=== PATIENT | male | born 1960 | race Caucasian/White ===

== ENCOUNTER 2017-03-22 17:41 | Observation (INO) | payer BC ==
[2017-03-22] MEDS ORDERED: SODIUM CHLORIDE 0.9% 1,000 ML IV STA (18:20)
[2017-03-22] MEDS ORDERED: ASPIRIN 81 MG PO STA (18:20)
[2017-03-22] MEDS ORDERED: NITROGLYCERIN OINT 1 INCH/GM PACKET TOPICAL STA (18:21)
--- NOTE | 2017-03-22 18:24 | ED ---
General Adult HPI - General Chief complaint: Chest Pain Stated complaint: Chest pain Time Seen by Provider: 03/22/17 18:05 Source: patient, RN notes reviewed Mode of arrival: wheelchair Limitations: no limitations - History of Present Illness Initial comments: Patient is a pleasant 57-year-old male presenting to the emergency Department with palpitations and chest discomfort. Onset was prior to arrival. Symptoms are near resolved. Patient has no palpitations at this time. Patient felt his heart was racing. Patient checked his heart rate at home at 118. Patient's blood pressure was up somewhat. Patient did have some pressure in his chest that was mild. Chest pressure is near resolved at this time. Patient questionable whether or not he has some shortness of breath. No nausea or diaphoresis. Patient has had 3 episodes similar to this since January. Patient has yet to see his doctor. In January his heart rate did get up to 164 at one time. - Related Data Home Medications Medication Instructions Recorded Confirmed Aspirin 325 mg PO ONCE 03/22/17 03/22/17 Atorvastatin [Lipitor] 20 mg PO HS 03/22/17 03/22/17 Lansoprazole [Prevacid] 30 mg PO DAILY 03/22/17 03/22/17 Latanoprost [Xalatan 0.005%] 1 drop BOTH EYES HS 03/22/17 03/22/17 Losartan Potassium [Cozaar] 25 mg PO DAILY 03/22/17 03/22/17 Timolol 0.25% Ophth Soln [Timoptic 1 drop BOTH EYES DAILY 03/22/17 03/22/17 0.25% Ophth Soln] Allergies Allergy/AdvReac Type Severity Reaction Status Date / Time No Known Allergies Allergy Verified 03/22/17 18:37 Review of Systems ROS Statement: Those systems with pertinent positive or pertinent negative responses have been documented in the HPI. ROS Other: All systems not noted in ROS Statement are negative. Constitutional: Denies: fever Eyes: Denies: eye pain ENT: Denies: ear pain Respiratory: Denies: cough Cardiovascular: Reports: chest pain, palpitations Endocrine: Denies: fatigue Gastrointestinal: Denies: abdominal pain Genitourinary: Denies: dysuria Musculoskeletal: Denies: back pain Skin: Denies: rash Neurological: Denies: weakness Past Medical History Past Medical History: Hyperlipidemia, Hypertension History of Any Multi-Drug Resistant Organisms: None Reported Additional Past Surgical History / Comment(s): microvascular decompression Past Psychological History: No Psychological Hx Reported Smoking Status: Never smoker Past Alcohol Use History: Occasional Past Drug Use History: None Reported General Exam Limitations: no limitations General appearance: alert, in no apparent distress Head exam: Present: atraumatic Eye exam: Present: normal appearance, PERRL ENT exam: Present: normal oropharynx Neck exam: Present: normal inspection Respiratory exam: Present: normal lung sounds bilaterally. Absent: chest wall tenderness Cardiovascular Exam: Present: regular rate, normal rhythm Expanded Peripheral pulses: 2+: Radial (R), Radial (L), Dorsalis Pedis (R), Dorsalis Pedis (L) GI/Abdominal exam: Present: soft. Absent: tenderness Extremities exam: Present: normal inspection. Absent: pedal edema, calf tenderness Neurological exam: Present: alert Psychiatric exam: Present: normal affect, normal mood Skin exam: Present: normal color Course Vital Signs 03/22/17 03/22/17 17:45 19:02 Temperature 98.2 F Pulse Rate 90 78 Respiratory 18 18 Rate Blood Pressure 136/81 122/81 O2 Sat by Pulse 99 96 Oximetry EKG Findings - EKG Comments: EKG Findings:: Normal sinus rhythm 75. OK 142. QRS 86. QT 344. QTC 384. Left axis. Normal QRS. No acute ST change. Medical Decision Making - Medical Decision Making Patient reevaluated and resting comfortably in bed. Symptom-free at this time. Case was discussed in detail with Dr. Bishop, who will admit for Dr. Xiong. - Lab Data Result diagrams: 03/22/17 18:05 03/22/17 18:05 Lab Results 03/22/17 03/22/17 03/22/17 Range/Units 18:05 18:05 18:05 WBC 6.5 (3.8-10.6) k/uL RBC 4.81 (4.30-5.90) m/uL Hgb 15.7 (13.0-17.5) gm/dL Hct 44.7 (39.0-53.0) % MCV 93.0 (80.0-100.0) fL MCH 32.7 (25.0-35.0) pg MCHC 35.2 (31.0-37.0) g/dL RDW 12.5 (11.5-15.5) % Plt Count 179 (150-450) k/uL Neutrophils % 47 % Lymphocytes % 39 % Monocytes % 8 % Eosinophils % 2 % Basophils % 1 % Neutrophils # 3.0 (1.3-7.7) k/uL Lymphocytes # 2.6 (1.0-4.8) k/uL Monocytes # 0.5 (0-1.0) k/uL Eosinophils # 0.2 (0-0.7) k/uL Basophils # 0.1 (0-0.2) k/uL PT (9.0-12.0) sec INR (<1.2) APTT (22.0-30.0) sec Sodium 143 (137-145) mmol/L Potassium 3.7 (3.5-5.1) mmol/L Chloride 106 (98-107) mmol/L Carbon Dioxide 27 (22-30) mmol/L Anion Gap 10 mmol/L BUN 14 (9-20) mg/dL Creatinine 0.66 (0.66-1.25) mg/dL Est GFR (MDRD) Af Amer >60 (>60 ml/min/1.73 sqM) Est GFR (MDRD) Non-Af >60 (>60 ml/min/1.73 sqM) Glucose 91 (74-99) mg/dL Calcium 9.4 (8.4-10.2) mg/dL Magnesium 1.9 (1.6-2.3) mg/dL Total Bilirubin 0.5 (0.2-1.3) mg/dL AST 35 (17-59) U/L ALT 42 (21-72) U/L Alkaline Phosphatase 62 (38-126) U/L Total Creatine Kinase 423 H (55-170) U/L CK-MB (CK-2) 4.2 H* (0.0-2.4) ng/mL CK-MB (CK-2) Rel Index 1.0 Troponin I <0.012 (0.000-0.034) ng/mL Total Protein 6.8 (6.3-8.2) g/dL Albumin 4.1 (3.5-5.0) g/dL TSH 4.130 (0.465-4.680) mIU/L Free T4 0.97 (0.78-2.19) ng/dL Free T3 pg/mL 4.4 (2.8-5.3) pg/ml 03/22/17 Range/Units 18:05 WBC (3.8-10.6) k/uL RBC (4.30-5.90) m/uL Hgb (13.0-17.5) gm/dL Hct (39.0-53.0) % MCV (80.0-100.0) fL MCH (25.0-35.0) pg MCHC (31.0-37.0) g/dL RDW (11.5-15.5) % Plt Count (150-450) k/uL Neutrophils % % Lymphocytes % % Monocytes % % Eosinophils % % Basophils % % Neutrophils # (1.3-7.7) k/uL Lymphocytes # (1.0-4.8) k/uL Monocytes # (0-1.0) k/uL Eosinophils # (0-0.7) k/uL Basophils # (0-0.2) k/uL PT 10.7 (9.0-12.0) sec INR 1.1 (<1.2) APTT 23.5 (22.0-30.0) sec Sodium (137-145) mmol/L Potassium (3.5-5.1) mmol/L Chloride (98-107) mmol/L Carbon Dioxide (22-30) mmol/L Anion Gap mmol/L BUN (9-20) mg/dL Creatinine (0.66-1.25) mg/dL Est GFR (MDRD) Af Amer (>60 ml/min/1.73 sqM) Est GFR (MDRD) Non-Af (>60 ml/min/1.73 sqM) Glucose (74-99) mg/dL Calcium (8.4-10.2) mg/dL Magnesium (1.6-2.3) mg/dL Total Bilirubin (0.2-1.3) mg/dL AST (17-59) U/L ALT (21-72) U/L Alkaline Phosphatase (38-126) U/L Total Creatine Kinase (55-170) U/L CK-MB (CK-2) (0.0-2.4) ng/mL CK-MB (CK-2) Rel Index Troponin I (0.000-0.034) ng/mL Total Protein (6.3-8.2) g/dL Albumin (3.5-5.0) g/dL TSH (0.465-4.680) mIU/L Free T4 (0.78-2.19) ng/dL Free T3 pg/mL (2.8-5.3) pg/ml - Radiology Data Radiology results: image reviewed (Chest x-ray shows no acute process) Disposition Clinical Impression: Chest pain, Palpitations Disposition: ADMITTED IP TO THIS [facility] Referrals: Kenneth Xiong MD [Primary Care Provider] - 1-2 days Decision Time: 20:31
[2017-03-22 18:38] LABS: Basophils # (A) 0.1 k/uL (0-0.2); Basophils % (A) 1 %; Eosinophils # (A) 0.2 k/uL (0-0.7); Eosinophils % (A) 2 %; HCT 44.7 % (39.0-53.0); HGB 15.7 gm/dL (13.0-17.5); Lymphocytes # (A) 2.6 k/uL (1.0-4.8); Lymphocytes % (A) 39 %; MCH 32.7 pg (25.0-35.0); MCHC 35.2 g/dL (31.0-37.0); Mean Platelet Volume 7.4; Monocytes # (A) 0.5 k/uL (0-1.0); Monocytes % (A) 8 %; Neutrophils % (A) 47 %; Platelet Count 179 k/uL (150-450); RBC 4.81 m/uL (4.30-5.90); RDW 12.5 % (11.5-15.5); WBC 6.5 k/uL (3.8-10.6)
[2017-03-22 18:46] LABS: INR 1.1 (<1.2); Partial Thromboplastin Time 23.5 sec (22.0-30.0); Prothrombin Time 10.7 sec (9.0-12.0)
[2017-03-22 18:55] LABS: ALT 42 U/L (21-72); AST 35 U/L (17-59); Albumin 4.1 g/dL (3.5-5.0); Alkaline Phosphatase 62 U/L (38-126); Anion Gap 10 mmol/L; Blood Urea Nitrogen 14 mg/dL (9-20); Calcium 9.4 mg/dL (8.4-10.2); Carbon Dioxide 27 mmol/L (22-30); Chloride 106 mmol/L (98-107); Creatine Kinase 423 U/L (55-170); Glucose 91 mg/dL (74-99); Magnesium 1.9 mg/dL (1.6-2.3); Potassium 3.7 mmol/L (3.5-5.1); Sodium 143 mmol/L (137-145); Total Bilirubin 0.5 mg/dL (0.2-1.3); Total Protein 6.8 g/dL (6.3-8.2)
[2017-03-22 19:07] LABS: Troponin I <0.012 ng/mL (0.000-0.034)
--- NOTE | 2017-03-22 19:08 | XR ---
EXAMINATION TYPE: XR chest 2V DATE OF EXAM: 03/22/2017 COMPARISON: NONE HISTORY: Chest pain and dysrhythmia TECHNIQUE: Frontal and lateral views of the chest are obtained. FINDINGS: There is no focal air space opacity, pleural effusion, or pneumothorax seen. The cardiac silhouette size is within normal limits. The osseous structures are intact. Mild multilevel degener ative changes of the thoracic spine are noted. IMPRESSION: No acute cardiopulmonary process.
[2017-03-22 19:11] LABS: T4, Free (Free Thyroxine) 0.97 ng/dL (0.78-2.19)
[2017-03-22 19:12] LABS: Creatine Kinase MB 4.2 ng/mL (0.0-2.4)
[2017-03-22] MEDS ORDERED: NITROGLYCERIN SL TABS 0.4 MG TAB SUBLINGUAL PRN (20:31)
[2017-03-22] MEDS ORDERED: LATANOPROST 0.005% OPHTH DROPS 2.5 ML BTL BOTH EYES SCH (21:00)
[2017-03-22] MEDS ORDERED: ATORVASTATIN 20 MG TAB PO SCH (21:00)
[2017-03-22 22:19] VITALS: BMI 29.2
[2017-03-23 00:21] LABS: Creatine Kinase 308 U/L (55-170)
[2017-03-23 00:34] LABS: Troponin I <0.012 ng/mL (0.000-0.034)
[2017-03-23 00:38] LABS: Creatine Kinase MB 3.1 ng/mL (0.0-2.4)
[2017-03-23] MEDS: NITROGLYCERIN OINT 1 INCH/GM PACKET TOPICAL SCH ×2 (00:40→03:40)
[2017-03-23 07:17] LABS: Cholesterol 165 mg/dL (<200); HDL Cholesterol 40 mg/dL (40-60); LDL Cholesterol,Calculated 116 mg/dL (0-99); Triglycerides 43 mg/dL (<150)
[2017-03-23] MEDS ORDERED: PANTOPRAZOLE 40 MG TABLET PO SCH (07:30)
[2017-03-23 07:39] LABS: Creatine Kinase 232 U/L (55-170)
[2017-03-23 07:49] LABS: Troponin I <0.012 ng/mL (0.000-0.034)
[2017-03-23 07:57] LABS: Creatine Kinase MB 2.7 ng/mL (0.0-2.4)
[2017-03-23 08:15] VITALS: BP 135/84; PULSE 57; RESP 16; TEMP 97.8
[2017-03-23] MEDS ORDERED: ASPIRIN 325 MG TAB PO SCH (09:00)
[2017-03-23] MEDS ORDERED: LOSARTAN 25 MG TAB PO SCH (09:00)
[2017-03-23] MEDS ORDERED: TIMOLOL 0.25% OPHTH DROPS 5 ML BTL BOTH EYES SCH (09:00)
--- NOTE | 2017-03-23 10:01 | ECHOF ---
Referral Reason:chest pain MEASUREMENTS -------- HEIGHT: 182.9 cm WEIGHT: 94.8 kg BP: 135/84 RVIDd: 3.1 cm (< 3.3) IVSd: 1.3 cm (0.6 - 1.1) LVIDd: 4.8 cm (3.9 - 5.3) LVPWd: 1.2 cm (0.6 - 1.1) IVSs: 1.6 cm LVIDs: 2.8 cm LVPWs: 1.8 cm Ao Diam: 3.5 cm (2.0 - 3.7) AV Cusp: 2.5 cm (1.5 - 2.6) LA Diam: 3.8 cm (2.7 - 3.8) MV EXCURSION: 20.130 mm (> 18.000) MV EF SLOPE: 116 mm/s (70 - 150) EPSS: 0.4 cm MV E [place]: 0.77 m/s MV DecT: 214 ms MV A [place]: 0.89 m/s MV E/A Ratio: 0.86 RAP: 5.00 mmHg RVSP: 24.25 mmHg FINDINGS -------- Sinus rhythm. This was a technically good study. The left ventricular size is normal. There is mild concentric left ventricular hypertrophy. Overa ll left ventricular systolic function is normal with, an EF between 55 - 60 %. The right ventricle is normal in size and function. The left atrium is normal in size. The right atrium is normal in size. Aortic valve is trileaflet and is mildly thickened. The mitral valve leaflets are mildly thickened. Mild mitral regurgitation is present. Mild tricuspid regurgitation present. The right ventricular systolic pressure, as measured by Doppl er, is 24.25mmHg. Pulmonic valve appears structurally normal. The aortic root size is normal. The pericardium is normal. CONCLUSIONS -------- 1. Sinus rhythm. 2. This was a technically good study. 3. The left ventricular size is normal. 4. There is mild concentric left ventricular hypertrophy. 5. Overall left ventricular systolic function is normal with, an EF between 55 - 60 %. 6. The right ventricle is normal in size and function. 7. The left atrium is normal in size. 8. The right atrium is normal in size. 9. Aortic valve is trileaflet and is mildly thickened. 10. The mitral valve leaflets are mildly thickened. 11. Mild mitral regurgitation is present. 12. Mild tricuspid regurgitation present. 13. The right ventricular systolic pressure, as measured by Doppler, is 24.25mmHg. 14. Pulmonic valve appears structurally normal. 15. The aortic root size is normal. 16. The pericardium is normal. ADVERTISING STATISTICAL CLERK: Tracee Mcrcacken RDCS
--- NOTE | 2017-03-23 10:20 | P.CRDCN ---
History of Present Illness Consult date: 03/23/17 History of present illness: Mr. Person is a pleasatn 57-year-old male with past medical history significant for dyslipidemia and hypertension. He denies history of coronary artery disease and has never seen a presser hand for any reason. He states he had a normal stress test in 2009. We have been asked to see him in consultation for complaints of palpitations. He states yesterday while he was doing some tile work in his kitchen he started feeling palpitations. He also experienced a discomfort in his left anterior chest. Not a pain per se just an abnormal sensation is how he describes it. This persisted for approximately 20-30 minutes. He checked his blood pressure and pulse at home, blood pressure was 138 /110 with heart rate 118. He cannot specify aggravating or alleviating factors. The palpitations as well as the chest discomfort went away on its own. He does describe having had palpitations 2-3 times since . He was also diagnosed with shingles over [place] and was treated as an outpatient. He has had no further episodes since admission, telemetry tracings have been unremarkable. He states he is fairly active regularly with daily exercise on a treadmill. He recently started a vegan diet with his . EKG is sinus mechanism with no acute ST or T-wave abnormalities evident. Chest xray is negative for an acute cardiopulmonary process. Laboratory data reviewed, hemoglobin 15.7, platelets 179, potassium 3.7, magnesium 1.9, creatinine 0.66, cardiac enzymes negative 3 LDL 116, HDL 40, triglycerides 43, total cholesterol 165, TSH 4.13. Current cardiac medications include Lipitor 20 mg daily and losartan 25 mg daily. Review of Systems CONSTITUTIONAL: Denies fever. Denies chills. EYES: Denies blurred vision. Denies vision changes. Denies eye pain. EARS, NOSE, MOUTH & THROAT: Denies headache. Denies sore throat. Denies ear pain. CARDIOVASCULAR: Denies chest pain. Denies shortness of breath. Denies orthopnea. Denies PND. Denies palpitations. RESPIRATORY: Denies cough. GASTROINTESTINAL: Denies abdominal pain. Denies diarrhea. Denies constipation. Denies nausea. Denies vomiting. MUSCULOSKELETAL: Denies myalgias. INTEGUMENTARY: Denies pruitis. Denies rash. NEUROLOGIC: Denies numbness. Denies tingling. Denies weakness. PSYCHIATRIC: Denies anxiety. Denies depression. ENDOCRINE: Denies fatigue. Denies weight change. Denies polydipsia. Denies polyurina. GENITOURINARY: Denies burning, hematuria or urgency with micturation. HEMATOLOGIC: Denies history of anemia. Denies bleeding. Past Medical History Past Medical History: Hyperlipidemia, Hypertension History of Any Multi-Drug Resistant Organisms: None Reported Additional Past Surgical History / Comment(s): microvascular decompression Past Anesthesia/Blood Transfusion Reactions: No Reported Reaction Past Psychological History: No Psychological Hx Reported Smoking Status: Never smoker Past Alcohol Use History: Occasional Past Drug Use History: None Reported - Past Family History Mother Family Medical History: Cancer, Diabetes Mellitus, Hypertension Additional Family Medical History / Comment(s): heart issues, pancreatic CA Father Family Medical History: Congestive Heart Failure (CHF), Diabetes Mellitus Additional Family Medical History / Comment(s): parkinsons Medications and Allergies Home Medications Medication Instructions Recorded Confirmed Type Atorvastatin [Lipitor] 20 mg PO HS 03/22/17 03/22/17 History Lansoprazole [Prevacid] 30 mg PO DAILY 03/22/17 03/22/17 History Latanoprost [Xalatan 0.005%] 1 drop BOTH EYES HS 03/22/17 03/22/17 History Losartan Potassium [Cozaar] 25 mg PO DAILY 03/22/17 03/22/17 History Timolol 0.25% Ophth Soln [Timoptic 1 drop BOTH EYES DAILY 03/22/17 03/22/17 History 0.25% Ophth Soln] Allergies Allergy/AdvReac Type Severity Reaction Status Date / Time No Known Allergies Allergy Verified 03/22/17 22:12 Physical Exam Vitals: Vital Signs Temp Pulse Pulse Resp BP BP Pulse Ox 03/23/17 08:00 97.8 F 57 L 16 135/84 97 03/23/17 04:00 98.1 F 66 18 117/75 97 03/23/17 03:25 18 03/22/17 23:59 18 03/22/17 22:11 98 F 75 18 120/75 95 03/22/17 20:38 97.6 F 69 18 117/75 98 03/22/17 19:02 78 18 122/81 96 03/22/17 17:45 98.2 F 90 18 136/81 99 Intake and Output 03/22/17 03/23/17 03/23/17 22:59 06:59 14:59 Intake Total 200 Balance 200 Intake: Amount of Fluid Infused ( 200 ml) Other: # Voids 1 Weight 95.2 kg Blood pressure 117/75 heart rate 66 afebrile GENERAL: This is a 57-year-old male in no apparent distress at the time of my examination. HEENT: Head is atraumatic, normocephalic. Pupils are equal, round. Sclerae anicteric. Conjunctivae are clear. Mucous membranes of the mouth are moist. Neck is supple. There is no jugular venous distention. No carotid bruit is heard. LUNGS: Clear to auscultation no wheezes, rales or rhonchi. No chest wall tenderness is noted on palpation or with deep breathing. HEART: Regular rate and rhythm without murmurs, rubs or gallops. S1 and S2 heard. ABDOMEN: Soft, nontender. Bowel sounds are heard. No organomegaly noted. EXTREMITIES: 2+ peripheral pulses with no evidence of peripheral edema and no calf tenderness noted. NEUROLOGIC: Patient is awake, alert and oriented x3. Results 03/22/17 18:05 03/22/17 18:05 Cardiac Enzymes 03/22/17 03/22/17 03/22/17 Range/Units 18:05 18:05 23:40 AST 35 (17-59) U/L CK-MB (CK-2) 4.2 H* 3.1 H* (0.0-2.4) ng/mL Troponin I <0.012 <0.012 (0.000-0.034) ng/mL 03/23/17 Range/Units 06:31 AST (17-59) U/L CK-MB (CK-2) 2.7 H* (0.0-2.4) ng/mL Troponin I <0.012 (0.000-0.034) ng/mL Coagulation 03/22/17 Range/Units 18:05 PT 10.7 (9.0-12.0) sec APTT 23.5 (22.0-30.0) sec Lipids 03/23/17 Range/Units 06:31 Triglycerides 43 (<150) mg/dL Cholesterol 165 (<200) mg/dL HDL Cholesterol 40 (40-60) mg/dL CBC 03/22/17 Range/Units 18:05 WBC 6.5 (3.8-10.6) k/uL RBC 4.81 (4.30-5.90) m/uL Hgb 15.7 (13.0-17.5) gm/dL Hct 44.7 (39.0-53.0) % Plt Count 179 (150-450) k/uL Comprehensive Metabolic Panel 03/22/17 Range/Units 18:05 Sodium 143 (137-145) mmol/L Potassium 3.7 (3.5-5.1) mmol/L Chloride 106 (98-107) mmol/L Carbon Dioxide 27 (22-30) mmol/L BUN 14 (9-20) mg/dL Creatinine 0.66 (0.66-1.25) mg/dL Glucose 91 (74-99) mg/dL Calcium 9.4 (8.4-10.2) mg/dL AST 35 (17-59) U/L ALT 42 (21-72) U/L Alkaline Phosphatase 62 (38-126) U/L Total Protein 6.8 (6.3-8.2) g/dL Albumin 4.1 (3.5-5.0) g/dL Current Medications Generic Name Dose Route Start Last Admin Trade Name Freq PRN Reason Stop Dose Admin Aspirin 325 mg 03/23/17 09:00 Aspirin PO DAILY [facility] Atorvastatin Calcium 20 mg 03/22/17 21:00 03/22/17 22:29 Lipitor PO 20 mg HS [facility] Administration Latanoprost 1 drops 03/22/17 21:00 03/22/17 22:29 Xalatan 0.005% BOTH EYES 1 drops HS CARL[facility]O Administration Losartan Potassium 25 mg 03/23/17 09:00 Cozaar PO DAILY [facility] Nitroglycerin 1 inch 03/23/17 00:00 03/23/17 03:40 Nitro-Bid Oint TOPICAL Not Given Q6HR [facility] Nitroglycerin 0.4 mg 03/22/17 20:31 Nitrostat SUBLINGUAL Q5M PRN Chest Pain Pantoprazole Sodium 40 mg 03/23/17 07:30 Protonix PO AC-BRKFST [facility] Timolol Maleate 1 drops 03/23/17 09:00 Timoptic BOTH EYES DAILY [facility] Intake and Output 01/03/23/17 03/23/17 22:59 06:59 14:59 Intake Total 200 Balance 200 Intake: Amount of Fluid Infused ( 200 ml) Other: # Voids 1 Weight 95.2 kg 03/22/17 18:05 03/22/17 18:05 Assessment and Plan Assessment: ASSESSMENT 1. Palpitations 2. Dyslipidemia 3. Hypertension PLAN Obtain 2D echocardiogram and doppler study to assess cardiac structure and function. Recommend 30-day event monitor to assess for cardiac arrhythmia. Stress test as an outpatient at the office and see Dr. Morin in 6 weeks. Thank you kindly for this consultation. The above impression and plan of care have been discussed and directed by the signing physician. Idania Castillo, nurse practitioner, acting as scribe for signing physician.
--- NOTE | 2017-03-23 11:30 | P.HPIM ---
History of Present Illness H&P Date: 03/23/17 Chief Complaint: Palpitation and chest pain This is a history and physical and discharge summary. This is a 57-year-old male one of Dr. Xiong with a previous medical history significant for hypertension and hypertensive cardio vascular disease, hyperlipidemia, history of benign prostatic hypertrophy, history of shingles, patient became completely Vegan about 5 weeks ago and he had felt quite a bit better since he did that he stated that since Thanksgiving he had 3 episode of palpitation associated with left-sided chest tightness has no relation to activity, patient didn't do anything about it at that time. Abdomen yesterday when he was working on a home project remodeling his kitchen will he suddenly developed to have a palpitation as well as left-sided chest tightness and his blood pressure was elevated specially his diastolic number, patient ended up coming to the emergency department at [facility] and he had EKG that showed normal sinus rhythm with no acute ischemic changes, his CPK was slightly elevated because of his physical activity his troponin came back negative, his monitor did not show any evidence of acute ST or T-wave changes and there were no arrhythmias, patient was seen in consultation by cardiology it was thought that the patient can be sent home and have a Holter monitor as well as stress test as an outpatient. Review of Systems Constitutional: Reports weight loss, Denies anorexia, Denies chronic headaches, Denies lethargy, Denies weakness, Denies weight gain Eyes: denies bulging eye, denies decreased vision, denies diplopia, denies discharge Ears: deny: decreased hearing Ears, nose, mouth and throat: Denies dysphagia, Denies neck lump, Denies swelling in throat, Denies sore throat Cardiovascular: Reports chest pain, Reports high blood pressure, Denies decreased exercise tolerance, Denies dyspnea on exertion, Denies paroxysmal nocturnal dyspnea, Denies phlebitis, Denies rapid heart beat, Denies shortness of breath, Denies syncope Respiratory: Denies congestion, Denies cough, Denies cough with sputum, Denies home oxygen, Denies sleep apnea, Denies snoring, Denies wheezing Gastrointestinal: Reports abdominal pain, Denies bloating, Denies excessive gas , Denies heartburn, Denies melena, Denies nausea, Denies vomiting Genitourinary: Denies dysuria, Denies kidney stones Musculoskeletal: Denies myalgias Musculoskeletal: absent: ankle pain, ankle stiffness, ankle swelling, elbow pain , elbow stiffness, elbow swelling, foot pain, foot stiffness, foot swelling, hand pain, hand stiffness, hand swelling, hip pain, hip stiffness, hip swelling , knee pain, knee stiffness, knee swelling, shoulder pain, shoulder stiffness, shoulder swelling, wrist pain, wrist stiffness, wrist swelling Integumentary: Denies pruritus, Denies rash Neurological: Denies numbness, Denies weakness Psychiatric: Denies anxiety, Denies depression Endocrine: Denies fatigue, Denies weight change Past Medical History Past Medical History: GERD/Reflux, Hyperlipidemia, Hypertension, Prostate Disorder Additional Past Medical History / Comment(s): Hyperlipidemia, hypertension, zoster, BPH, vegan 5 weeks ago. History of Any Multi-Drug Resistant Organisms: None Reported Additional Past Surgical History / Comment(s): microvascular decompression for trigeminal neuralgia on the left side was done by Dr. Sarmiento at [facility]. Past Anesthesia/Blood Transfusion Reactions: No Reported Reaction Past Psychological History: No Psychological Hx Reported Smoking Status: Never smoker Past Alcohol Use History: Occasional Past Drug Use History: None Reported - Past Family History Mother Family Medical History: Cancer, Diabetes Mellitus (Other at age of 84 from diabetes competition, congestive heart failure and pancreatic cancer.), Hypertension Additional Family Medical History / Comment(s): heart issues, pancreatic CA Father Family Medical History: Congestive Heart Failure (CHF), Diabetes Mellitus ( Father at age 78 from Parkinson and he also had diabetes mellitus type 2 and congestive heart failure.) Additional Family Medical History / Comment(s): parkinsons Sister(s) Family Medical History: No Reported History (Patient has one sister no major medical problems) Son(s) Family Medical History: No Reported History (Patient has 2 sons no major medical problems.) Medications and Allergies Home Medications Medication Instructions Recorded Confirmed Type Atorvastatin [Lipitor] 20 mg PO HS 03/22/17 03/22/17 History Lansoprazole [Prevacid] 30 mg PO DAILY 03/22/17 03/22/17 History Latanoprost [Xalatan 0.005%] 1 drop BOTH EYES HS 03/22/17 03/22/17 History Losartan Potassium [Cozaar] 25 mg PO DAILY 03/22/17 03/22/17 History Timolol 0.25% Ophth Soln [Timoptic 1 drop BOTH EYES DAILY 03/22/17 03/22/17 History 0.25% Ophth Soln] Allergies Allergy/AdvReac Type Severity Reaction Status Date / Time No Known Allergies Allergy Verified 03/22/17 22:12 Physical Exam Vitals: Vital Signs Temp Pulse Pulse Resp BP BP Pulse Ox 03/23/17 08:00 97.8 F 57 L 16 135/84 97 03/23/17 04:00 98.1 F 66 18 117/75 97 03/23/17 03:25 18 03/22/17 23:59 18 03/22/17 22:11 98 F 75 18 120/75 95 03/22/17 20:38 97.6 F 69 18 117/75 98 03/22/17 19:02 78 18 122/81 96 03/22/17 17:45 98.2 F 90 18 136/81 99 Intake and Output 03/22/17 03/23/17 03/23/17 22:59 06:59 14:59 Intake Total 200 Balance 200 Intake: Amount of Fluid Infused ( 200 ml) Other: Voiding Method Toilet # Voids 1 Weight 95.2 kg - Constitutional General appearance: average body habitus, no acute distress - Neck Neck: normal ROM, no rigidity, no stridor, no thyromegaly Carotids: bilateral: upstroke normal Thyroid: bilateral: normal size - Respiratory Respiratory: bilateral: diminished, negative: dullness, rales, rhonchi, wheezing , prolonged expiration, prolonged inspiration - Cardiovascular Rhythm: regular Heart sounds: normal: S1, S2 Abnormal Heart Sounds: no systolic murmur, no S3 Gallop, no S4 Gallop, no click - Gastrointestinal General gastrointestinal: normal bowel sounds, soft, no splenomegaly, no tenderness, no umbilical hernia, no ventral hernia - Integumentary Integumentary: normal, normal turgor - Neurologic Neurologic: CNII-XII intact - Musculoskeletal Musculoskeletal: strength equal bilaterally - Psychiatric Psychiatric: A&O x's 3, appropriate affect, intact judgment & insight Results CBC & Chem 7: 03/22/17 18:05 03/22/17 18:05 Labs: Abnormal Lab Results - Last 24 Hours (Table) 03/22/17 03/22/17 03/23/17 Range/Units 18:05 23:40 06:31 Total Creatine Kinase 423 H 308 H 232 H (55-170) U/L CK-MB (CK-2) 4.2 H* 3.1 H* 2.7 H* (0.0-2.4) ng/mL LDL Cholesterol, Calc (0-99) mg/dL 03/23/17 Range/Units 06:31 Total Creatine Kinase (55-170) U/L CK-MB (CK-2) (0.0-2.4) ng/mL LDL Cholesterol, Calc 116 H (0-99) mg/dL Thrombosis Risk Factor Assmnt - DVT/VTE Prophylaxis DVT/VTE Prophylaxis: Low risk, early ambulation encouraged - Choose All That Apply Each Factor Represents 1 point: Age 41-60 years Thrombosis Risk Factor Assessment Total Risk Factor Score: 1 Thrombosis Risk Factor Assessment Level: Low Risk Assessment and Plan Assessment: Assessment and plan: 1. Palpitation could be related to suppress ventricular tachycardia versus other supra ventricular arrhythmias. Patient did not have any arrhythmias on the monitor over the last 24 hours, cardiac enzymes are negative, patient will have a Holter monitor as an outpatient follow-up with cardiology. 2. Left-sided chest tightness. Noncardiac, however patient does have a family history and few risk factors. Patient will have a stress echocardiogram as an outpatient. 3. Hypertension and hypertensive cardiovascular disease. Continue patient on losartan 25 mg orally once every day. 4. Hyperlipidemia. Continue patient on Lipitor 20 mg orally once every day. 5. GERD. Continue Prevacid 30 mg orally once every day. 6. History of shingles. Resolved. 7. History of left-sided trigeminal neuralgia. Post microvascular decompression. 8. Glaucoma. Continue current eyedrops. 9. Patient can be discharged home with follow-up with cardiology as an outpatient. 10. Patient was admitted as an observation. 11. Continue low-cholesterol low-fat diet and exercise and weight loss, follow- up of Dr. Xiong's outpatient one week. Follow-up with cardiology Dr. Morin in 2 weeks.
== END 2017-03-23 11:52 | disposition home or self-care (01) ==
LOC: EC 17:41 → 3SUR 20:32 → 3OBS 03-23 07:11
PROVIDERS: ADMIT Internal Medicine; ATTEND Internal Medicine
DX: R00.2 Palpitations (principal); R07.89 Other chest pain; Z82.49 Family history of ischemic heart disease and other diseases of the circulatory system; I11.9 Hypertensive heart disease without heart failure; E78.5 Hyperlipidemia, unspecified; K21.9 Gastro-esophageal reflux disease without esophagitis; G50.0 Trigeminal neuralgia; H40.9 Unspecified glaucoma; N40.0 Benign prostatic hyperplasia without lower urinary tract symptoms; Z86.19 Personal history of other infectious and parasitic diseases; Z79.899 Other long term (current) drug therapy; Z79.82 Long term (current) use of aspirin; Z83.3 Family history of diabetes mellitus; Z82.0 Family history of epilepsy and other diseases of the nervous system; Z80.0 Family history of malignant neoplasm of digestive organs
CPT/HCPCS: 99285; 96360 ×2; 96361 ×6; 36415; 93005; 93306; 93270; 93271; 84439; 84481; 80061; 80053; 82550 ×2; 82553 ×2; 83735; 84443; 84484 ×2; 85025; 85610; 85730; 71046; G0378 ×2

== ENCOUNTER → 2017-06-11 | Outpatient (CLI) | payer BC ==
--- NOTE | 2017-06-11 17:43 | PN ---
PROGRESS NOTE DATE OF SERVICE: 06/11/2017 This patient is a 57-year-old gentleman who has been followed in the sleep center for treatment of obstructive sleep apnea-hypopnea syndrome. Recently patient had a home sleep apnea test and CPAP titration, and I discussed the results of his sleep studies with the patient in detail. Home sleep apnea test showed moderate obstructive sleep apnea-hypopnea syndrome with apnea-hypopnea index 19.4 and oxygen desaturation to 77%. CPAP titration showed that with a pressure of 10, the patient's respiration was under control. Subsequently the patient received his CPAP unit, and today he came to the sleep center for the first time with his CPAP machine. According to the patient, he does not have a significant problem with the machine. He is able to use it every night for the whole night. He sleeps better with the machine and feels better during the day. I checked his CPAP unit. CPAP pressure is 10 cm of water. Usage is 100% of the time for more than 4 hours. Average usage is 7.4 hours. Leak is 24 L/minute, which is acceptable. Apnea-hypopnea index for the last month is 3.5, which is in normal range. [place] Sleepiness Scale today is 3. MEDICATIONS: 1. Atorvastatin. 2. Lansoprazole. 3. Eye drops, including latanoprost and timolol. PHYSICAL EXAMINATION: GENERAL A pleasant gentleman without distress. VITAL SIGNS: BP 136/85, HR 63, RR 16, weight 217.4, temperature 97.8, oxygen saturation at room air 96%. HEENT: PERRLA, EOMI. Evaluation of oropharynx showed tongue protrudes midline; extremely low position of soft palate. NECK: Supple. No JVD. Thyroid is not palpable. LUNGS: Clear to percussion and to auscultation. Good air exchange. No wheezing or rhonchi. HEART: S1, S2 regular. No murmurs, gallops or rubs. ABDOMEN: Slightly obese. EXTREMITIES : No clubbing or cyanosis. [employer]ER [employer]ANT WORKER: Awake, alert, and oriented X3. Cranial nerves 2 to 7 intact. There is no fasciculation or atrophy. noted. No focal deficits observed. IMPRESSION: 1. Moderate obstructive sleep apnea-hypopnea syndrome, under control with CPAP at 10 cm of water. Patient demonstrated 100% compliance with treatment, benefitting from treatment. 2. Mild obesity. 3. Hypertension. 4. Hyperlipidemia. 5. History of increased eye pressure. 6. History of trigeminal neuralgia. 7. Status post microvascular decompression procedure for treatment of trigeminal neuralgia on the left side in 2005. PLAN: 1. Patient will continue to use CPAP equipment every night for the whole night. 2. Watching and losing weight. 3. Sleep hygiene with regular time in bed for at least 7-1/2 to 8 hours. 4. No driving if feeling any sleepiness. 5. We will maintain prescription for all necessary CPAP supplies. 6. Follow-up visit in one year or earlier if patient has any problems. Thank you very much for allowing me to participate in the management of your patient. Sincerely, Cole Moreno MD, PhD, FAASM Diplomat of [employer] [employer] [employer] [facility] [place] MMDANIALL / SIMÓN: [id number] /
== END | disposition home or self-care (01) ==
LOC: SLEEP 16:39
PROVIDERS: ATTEND Internal Medicine
DX: G47.33 Obstructive sleep apnea (adult) (pediatric) (principal); E66.9 Obesity, unspecified; I10 Essential (primary) hypertension; E78.5 Hyperlipidemia, unspecified; Z86.69 Personal history of other diseases of the nervous system and sense organs; Z98.890 Other specified postprocedural states; Z79.899 Other long term (current) drug therapy

== ENCOUNTER → 2018-10-21 | Outpatient (CLI) | payer BC ==
--- NOTE | 2018-10-21 21:12 | PN ---
PROGRESS NOTE DATE OF SERVICE: 10/21/2018 This patient is a 58-year-old gentleman who has been followed in Sleep Center for treatment of obstructive sleep apnea-hypopnea syndrome. Patient successfully continues to use CPAP equipment every night for the whole night. He does not report any problems related to the mask fitting, pressure or humidification. Again, he uses the machine every night and likes it. I checked his CPAP unit. CPAP pressure is 10 cm of water. For the last 6 months, the patient has been using it 180/180 nights more than 4 hours with average usage 7.8 hours per night. Leak is 12 L/minute. Apnea-hypopnea index for the last 6 months again 3.5. For the last month, apnea-hypopnea index increased to 5.4, and the patient at that time increased his weight. Now his weight is 230 pounds, which is 13 pounds more than during his visit one year ago. MEDICATIONS: 1. Atorvastatin. 2. Lansoprazole. 3. Eye drops. 4. Latanoprost. 5. Timolol. PHYSICAL EXAMINATION: GENERAL: A pleasant patient in no distress. VITAL SIGNS: BP 137/81, HR 66, RR 16, height 5 feet 11 inches, weight 230 pounds. Body mass index 32.2. Temperature 97.1. Oxygen saturation at room air 97%. HEENT: PERRLA, EOMI. Evaluation of oropharynx showed tongue protrudes midline. Extremely low position of soft palate. Mallampati IV. NECK: Supple. No JVD. Thyroid is not palpable. LUNGS: Clear to percussion and to auscultation. Good air exchange. No wheezing or rhonchi. HEART: S1, S2 regular. No murmurs, gallops or rubs. ABDOMEN: Slightly obese. EXTREMITIES: No clubbing or cyanosis. RETAIL SALES ASSOCIATE SEASONAL: Awake, alert, and oriented X3. Cranial nerves 2 to 7 intact. There is no fasciculation or atrophy. noted. No focal deficits observed. IMPRESSION: 1. Obstructive sleep apnea-hypopnea syndrome. The patient demonstrated 100% compliance with treatment, benefitting from treatment. 2. Obesity. Patient's weight increased by 13 pounds since one year ago. 3. Hypertension. 4. Hyperlipidemia. 5. History of increased eye pressure. 6. History of trigeminal neuralgia. 7. Status post microvascular decompression procedure for treatment of trigeminal neuralgia on the left side in 2005. PLAN: 1. I will slightly increase the pressure in the CPAP unit to 11 cm of water. 2. Losing weight. 3. Sleep hygiene with regular time in bed for at least 7-1/2 to 8 hours. 4. No driving if feeling any sleepiness. 5. Prescription for all necessary CPAP supplies, including full-face mask, heated tube, filters. 6. Follow-up visit in one year, or earlier if the patient has any problems. Thank you very much for allowing me to participate in the management of your patient. Sincerely, Cole Moreno MD, PhD, FAASM Diplomat of [place] [employer] [place] [employer] [facility] [place] MMODL / RANDYN: [id number] /
== END ==
LOC: SLEEP 16:04
PROVIDERS: ATTEND Internal Medicine
DX: E78.5 Hyperlipidemia, unspecified (principal); G47.33 Obstructive sleep apnea (adult) (pediatric); E66.9 Obesity, unspecified; I10 Essential (primary) hypertension; Z86.69 Personal history of other diseases of the nervous system and sense organs; Z98.890 Other specified postprocedural states; Z99.89 Dependence on other enabling machines and devices; Z79.899 Other long term (current) drug therapy